=== PATIENT | female | born 1975 | race Caucasian/White ===

== ENCOUNTER 2018-11-05 05:27 | Inpatient (IN) | payer BC, OTHER ==
--- NOTE | 2018-11-03 21:18 | PREOPHP ---
DATE OF ADMISSION: 11/05/2018 HISTORY OF PRESENT ILLNESS: This is a 43-year-old female, 2, para 2 with 2 spontaneous vagin al deliveries. The patient was referred to me in August of this year due to a history of fibroids that are growing with pelvic pain, intractable menometrorrhagia that leads her to severe anemia where the patient had been visiting the ER. The patient was advised by Dr. Sanchez for a hysterectomy later on. He retired and she is seeking for help. The patient is on vitamin with a history of a D and C a nd asthma, seasonal allergies on Albuterol. FAMILY HISTORY: Healthy. REVIEW OF SYSTEMS: Negative for cardiovascular disease, lung disease, neurological or urological, GI , endocrine, neurological, hematological disease. ALLERGIES: SHE IS NOT ALLERGIC TO ANY MEDICATION. SOCIAL HISTORY: She does not have a history of drug abuse. She only drinks socially. No history of smoking. PHYSICAL EXAMINATION: VITAL SIGNS: The patient's vital signs are stable with a blood pressure of 125/90. She weighs 217 p ounds. She is 5 foot 7 inches. The patient has an IUD to try to control the bleeding that is only p artially controlling. HEAD AND NECK: Normal. BREASTS: Soft, nontender, no masses. CHEST: Clear. HEART: Normal sinus rhythm. LUNGS: Clear. ABDOMEN: With suprapubic mass about 14-week size of a . GENITALIA: With normal external genitalia. Uterus is large with multiple fibroids. Adnexa are nonp alpable. RECTAL: Negative. EXTREMITIES: Negative. DIAGNOSES: 1. Giant multiple fibroid uterus. 2. Anemia. PLAN: She is undergoing a total abdominal hysterectomy and bilateral salpingectomy. She has been ad vised of the possible risks and possible complications of the surgery with her alternatives and optio ns. Written information was provided. She had no more questions and agreed to go ahead with the pro cedure with full understanding. The patient got better from the anemia with the IUD and she is under going the procedure, hysterectomy, bilateral salpingectomy preserving her ovaries due to her age. Th e patient has been advised that in case of a malignancy in the ovaries, she would have something done on that. Otherwise, the ovaries will stay. Otherwise, her laboratory testing show hypercholesterol emia and the multiple fibroids. The patient has scheduled for the procedure, I already mentioned. Dictated By: BERTO SANCHES/STEVE Conf#: [id number] DID#: [id number]
[~2018-11-05] VITALS: Ht 165.1 cm; Wt 95.7 kg
[2018-11-05] VITALS (26 sets, daily range): BP systolic 92–122; BP diastolic 52–83; PULSE 70–91; RESP 15–26; Ht 165.1 cm; Wt 95.7 kg
[~2018-11-05 05:27] MED LIST: ALBU18HF INHALATION; ALBU8.5H8 INH; BECL10.62 IH; FLUT1AER7 IH
[2018-11-05] MEDS ORDERED: CEFAZOLIN 2 GM/50 ML (PMX) 50 ML IVPB ONE (06:00)
--- NOTE | 2018-11-05 07:22 | PREAC ---
Date/Time of Note Date/Time of Note DATE: 11/05/18 TIME: 07: Anesthesia Eval and Record Evaluation Time Pre-Procedure Interview DATE: 11/05/18 TIME: 07:19 Age 43 Sex female NPO: 8 hrs Preoperative diagnosis fibroid uterine Planned procedure total abdominal hysterectomy BSO Past Medical History Past Medical History: Includes Pulm: Asthma GI: Obesity Surgery & Anesthesia Issues No known issue Meds Anticoagulation: No Beta Anastasiya within 24 hr: No Reason Beta Anastasiya not given: Pt. not on B-Anastasiya Reported Medications Fluticasone/Salmeterol (Airduo Respiclick 113-14 Mcg) 1 Each Aer.pow.ba, 1 EACH IH BID 11/05/18 Beclomethasone Dipropionate (Qvar Redihaler (80 MCG)) 10.6 Gm Hfa.aeroba, 2 PUFFS IH BID, INH 11/05/18 Albuterol Sulfate* (Ventolin HFA*) 18 Gm Hfa.aer.ad, 2 PUFF INHALATION Q4H, #1 INHALER 11/05/18 Discontinued Reported Medications Albuterol Sulfate* (Proair HFA*) 8.5 Gm Hfa.aer.ad, 2 PUFF INH Q4 PRN for WHEEZING AND SOB, INH 02/24/14 Meds reviewed: Yes Allergies Coded Allergies: No Known Allergy (Unverified , 11/05/18) Allergies Reviewed: Yes Labs/Studies Labs Reviewed: Reviewed by anesthesiologist Blood Bank Test 11/05/18 05:52 Blood Product Summary Counts test: Negative Studies: ECG (n/a), CXR (n/a) Pre-procedure Exam Last vitals Vital Signs Date Temp Pulse Resp B/P (MAP) Pulse Ox O2 O2 Flow FiO2 Time Delivery Rate 11/05/18 97.6 85 16 122/70 99 Room Air 06:29 (87) Airway: Adequate mouth opening Mallampati: Mallampati I Teeth: Normal Lung: Normal Heart: Normal ASA Physical Status ASA physical status: 2 Emergency: None Planned Anesthetic General/MAC: ETT, LMA Neuraxial: Spinal Planned Pain Management Sub-arachniod narcotics, Parenteral pain med Pre-operative Attestations Prior to commencing anesthesia and surgery, the patient was re-evaluated, there was verification of: *The patient's identity *The results of appropriate recent lab work and preoperative vital signs *The above evaluation not changing prior to induction *Anesthetic plan, risk benefits, alternative and complications discussed with patient/family; questions answered; patient/family understands, accepts and wishes to proceed. ACOSTA SONG MD Nov 05, 2018 07:22
[2018-11-05] MEDS ORDERED: HYDROmorphONE 1 MG/5 ML IV SYRINGE IV PRN ×3 (07:30)
[2018-11-05] MEDS ORDERED: KETOROLAC 30 MG INJ IV PRN (07:30)
[2018-11-05] MEDS ORDERED: DIPHENHYDRAMINE 50 MG INJ IV PRN (07:30)
[2018-11-05] MEDS ORDERED: MEPERIDINE 25 MG INJ IV PRN (07:30)
[2018-11-05] MEDS ORDERED: ALBUTEROL 0.083% (NEB) 2.5 MG/3 ML AMP HHN PRN (07:30)
[2018-11-05] MEDS ORDERED: FENTAnyl 50 MCG/ML VIAL IV PRN ×3 (07:30)
[2018-11-05] MEDS ORDERED: MIDAZOLAM 1 MG/ML 2 ML INJ ONE (07:37)
[2018-11-05] MEDS ORDERED: PROPOFOL 20 ML ONE (07:37)
[2018-11-05] MEDS ORDERED: CEFAZOLIN 1 GM INJ ONE (07:37)
[2018-11-05] MEDS ORDERED: KETOROLAC 30 MG INJ ONE (07:38)
[2018-11-05] MEDS ORDERED: ONDANSETRON 4 MG INJ ONE (07:38)
[2018-11-05] MEDS ORDERED: morphine SULFATE/PF (10 MG/10 ML) INJ ONE (07:38)
[2018-11-05] MEDS ORDERED: METOCLOPRAMIDE 10 MG INJ ONE ×2 (07:38→10:19)
--- NOTE | 2018-11-05 07:55 | HPN ---
Date/Time of Note Date/Time of Note DATE: 11/05/18 TIME: 07:55 Interval H&P Admission Note Pt. seen H&P reviewed: No system changes BERTO SKY MD Nov 05, 2018 07:55
[2018-11-05] MEDS ORDERED: EPHEDrine 25 MG/5 ML SYG ONE (08:02)
[2018-11-05] MEDS ORDERED: ROCURONIUM 50 MG INJ ONE (08:19)
[2018-11-05] MEDS ORDERED: ONDANSETRON INJ 6 MG in DEXTROSE 5% 50 ML IVPB PRN (10:30)
[2018-11-05] MEDS ORDERED: HYDROCODONE/APAP (5/325) TAB PO PRN ×2 (10:30)
[2018-11-05] MEDS ORDERED: ZOLPIDEM 5 MG TAB PO PRN (10:30)
[2018-11-05] MEDS ORDERED: ALBUTEROL 18 GM INHALER INH SCH (10:30)
[2018-11-05] MEDS ORDERED: DIPHENHYDRAMINE 50 MG CAP PO PRN (10:30)
[2018-11-05] MEDS ORDERED: METOCLOPRAMIDE 10 MG INJ IV PRN (10:30)
--- NOTE | 2018-11-05 10:45 | SIPON ---
Date/Time of Note Date/Time of Note DATE: 11/05/18 TIME: 10:37 Operative Report Preoperative Diagnosis Intractable pelvic pain intractable menometrorrhagia and multiple giant fibroids. Anemia Postoperative Diagnosis Same Operation/Procedure Performed Multiple myomectomy along with abdominal hysterectomy and bilateral salpingectomy Surgeon see signature line surgery assistant DR TITUS Anesthesia: general Estimated blood loss: 100 - 150 ml's Transfusion Required none Specimen Uterus and fibroids with cervix and tubes Grafts/Implants none Complications none BERTO SKY MD Nov 05, 2018 10:45
[2018-11-05] MEDS: KETOROLAC 30 MG INJ IV SCH ×3 (11:56→23:39)
[2018-11-05] MEDS: METOCLOPRAMIDE 10 MG TAB PO SCH ×3 (11:56→23:39)
[2018-11-05] MEDS: LACTATED RINGER'S 1,000 ML IV SCH ×2 (11:58→16:17)
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
[2018-11-05] MEDS: ALBUTEROL HFA 8 GM INHALER INH SCH ×3 (14:30→21:00)
[2018-11-05] MEDS: CEFAZOLIN 1 GM/50 ML (PMX) 50 ML IVPB SCH ×2 (16:17→23:39)
--- NOTE | 2018-11-05 20:05 | PAC ---
Date/Time of Note Date/Time of Note DATE: 11/05/18 TIME: 20:05 Post-Anesthesia Notes Post-Anesthesia Note Last documented vital signs Vital Signs Date Temp Pulse Resp B/P (MAP) Pulse Ox O2 O2 Flow FiO2 Time Delivery Rate 11/05/18 97.0 80 18 102/58 100 15:00 (73) 11/05/18 Nasal 2.0 11:23 Cannula Activity: WNL Respiratory function: WNL Cardiovascular function: WNL Mental status: Baseline Pain reasonably controlled: Yes Hydration appropriate: Yes Nausea/Vomiting absent: No ACOSTA SONG MD Nov 05, 2018 20:05
[2018-11-05] MEDS ORDERED: MOMETASONE 0.24 GM INHALER INH SCH (21:00)
[2018-11-05] MEDS: MOMETASONE 0.24 GM INHALER INH SCH (21:47)
[2018-11-06] MEDS: ALBUTEROL HFA 8 GM INHALER INH SCH ×3 (01:00→08:53)
[2018-11-06] MEDS: LACTATED RINGER'S 1,000 ML IV SCH (01:22)
[2018-11-06 02:49] VITALS: BP 107/59; PULSE 87; RESP 18
[2018-11-06] MEDS: KETOROLAC 30 MG INJ IV SCH ×4 (05:57→21:59)
[2018-11-06] MEDS: METOCLOPRAMIDE 10 MG TAB PO SCH ×3 (05:57→18:17)
[2018-11-06 07:13] VITALS: BP 98/58; PULSE 89; RESP 14
--- NOTE | 2018-11-06 07:45 | OPPN ---
Date/Time of Note Date/Time of Note DATE: 11/06/18 TIME: 07:43 Anesthesia Follow up Anesthesia Follow up Last documented vital signs Vital Signs Date Temp Pulse Resp B/P (MAP) Pulse Ox O2 O2 Flow FiO2 Time Delivery Rate 11/06/18 98.8 89 14 98/58 (71) 96 Room Air 07:13 11/05/18 2.0 11:23 Respiratory function: WNL Cardiovascular function: WNL Comments A 43 year female s/p hysterectomy under GA and spinal duramorph for post op pain .POD#1 is doing fine. No pain, itching, N/V, headache, neural deficit. SOB. ACOSTA SONG MD Nov 06, 2018 07:45
[2018-11-06] MEDS: FLUTICASONE/VILANTEROL 100-25 INH SCH (08:50)
[2018-11-06] MEDS: CEFAZOLIN 1 GM/50 ML (PMX) 50 ML IVPB SCH (08:50)
[2018-11-06] MEDS: MOMETASONE 0.24 GM INHALER INH SCH ×2 (08:50→20:52)
--- NOTE | 2018-11-06 11:07 | PN ---
Date/Time of Note Date/Time of Note DATE: 11/06/18 TIME: 11:05 Assessment/Plan Lines/Catheters IV Catheter Type (from Nrs): Peripheral IV Ramos in Place (from Nrs): Yes Subjective 24 Hr Interval Summary Afebrile, not up yet Day 1 post exploratory. Incision healing good. Urine is dark we will send for UA and culture. Low H&H we will start IV iron. Encouraged ambulation. Patient advised about surgical findings and procedure done. She appreciates that Constitutional: improved Feeding: advancing diet Pain Control: mild Detailed Summary Eyes: no complaints ENT: no complaints Respiratory: no complaints Cardiovascular: no complaints Gastrointestinal: no complaints Genitourinary: no complaints Musculoskeletal: no complaints Skin: no complaints Neurologic: no complaints Endocrine: no complaints Lymphatic: no complaints Psychological: no complaints, nl mood/affect Immunologic: no complaints Exam/Review of Systems Vital Signs Vitals Vital Signs Date Temp Pulse Resp B/P (MAP) Pulse Ox O2 O2 Flow FiO2 Time Delivery Rate 11/06/18 98.8 89 14 98/58 (71) 96 Room Air 07:13 11/05/18 2.0 11:23 Intake and Output 11/05/18 11/05/18 11/06/18 1515:00 23:00 07:00 IntakeIntake Total 1700 ml 1415 ml 1485 ml OutputOutput Total 300 ml BalanceBalance 1400 ml 1415 ml 1485 ml Exam Constitutional: alert, oriented, well developed Psych: no complaints, nl mood/affect Head: normocephalic, atraumatic Eyes: nl conjunctiva, EOMI, nl lids, nl sclera ENMT: nl external ears & nose, nl lips & teeth, nl nasal mucosa & septum, mucosa pink and moist Neck: supple, non-tender Respiratory: clear to auscultation, normal air movement Cardiovascular: regular rate and rhythm, nl pulses Gastrointestinal: soft, nl liver, spleen, non-tender Musculoskeletal: nl extremities to inspection, nl gait and stance Extremities: normal pulses Neurological: CALL CENTER TRAINER II-XII intact, nl mental status, nl speech, nl strength Skin: nl turgor, rash or lesions Lymph: nl lymph nodes Results Result Diagram: 11/06/18 0515 11/06/18 0515 BERTO SKY MD Nov 06, 2018 11:07
[2018-11-06] MEDS ORDERED: BISACODYL (EC) 5 MG TAB PO ONE (11:30)
[2018-11-06] MEDS ORDERED: ALBUTEROL HFA 8 GM INHALER INH PRN (12:00)
[2018-11-06] MEDS: SOD FERRIC GLUC COMPLX 125 MG in SOD CHLORIDE 0.9% 100 ML IVPB SCH (13:49)
[2018-11-06 14:59] VITALS: BP 117/68; PULSE 90; RESP 14
[2018-11-06 19:05] VITALS: BP 144/70; PULSE 97; RESP 18
[2018-11-07] MEDS: METOCLOPRAMIDE 10 MG TAB PO SCH ×5 (01:00→23:34)
[2018-11-07 02:00] VITALS: BP 114/63; PULSE 95; RESP 18
[2018-11-07] MEDS: KETOROLAC 30 MG INJ IV SCH ×4 (06:11→23:34)
[2018-11-07] MEDS: FLUTICASONE/VILANTEROL 100-25 INH SCH (08:20)
[2018-11-07] MEDS: MOMETASONE 0.24 GM INHALER INH SCH ×2 (08:20→23:35)
[2018-11-07 09:46] VITALS: BP 119/68; PULSE 105; RESP 18
--- NOTE | 2018-11-07 10:24 | PN ---
Date/Time of Note Date/Time of Note DATE: 11/07/18 TIME: 10:21 Assessment/Plan Lines/Catheters IV Catheter Type (from Nrsg): Saline Lock Ramos in Place (from Nrsg): No Subjective 24 Hr Interval Summary Day 2 postop Afebrile. Feeling good. Not in a lot of pain. Pain is controlled with p.o. meds. Very anemic for which iron IV is being given Ambulatory. Had bowel movements Patient advised to walk around more. Incision healing good. Possible home tomorrow Constitutional: no complaints Feeding: advancing diet Pain Control: mild Detailed Summary Eyes: no complaints ENT: no complaints Respiratory: no complaints Cardiovascular: no complaints Gastrointestinal: no complaints Genitourinary: no complaints Musculoskeletal: no complaints Skin: no complaints Neurologic: no complaints Endocrine: no complaints Lymphatic: no complaints Psychological: no complaints, nl mood/affect Immunologic: no complaints Exam/Review of Systems Vital Signs Vitals Vital Signs Date Temp Pulse Resp B/P (MAP) Pulse Ox O2 O2 Flow FiO2 Time Delivery Rate 11/07/18 97.5 105 18 119/68 99 Room Air 09:46 (85) 11/05/18 2.0 11:23 Intake and Output 11/06/18 11/06/18 11/07/18 1515:00 23:00 07:00 IntakeIntake Total 450 ml 940 ml BalanceBalance 450 ml 940 ml Exam Constitutional: alert, oriented, well developed Psych: no complaints, nl mood/affect Head: normocephalic, atraumatic Eyes: nl conjunctiva, EOMI, nl lids, nl sclera ENMT: nl external ears & nose, nl lips & teeth, nl nasal mucosa & septum, m ucosa pink and moist Neck: supple, non-tender Respiratory: clear to auscultation, normal air movement Cardiovascular: regular rate and rhythm, nl pulses Gastrointestinal: soft, nl liver, spleen, non-tender Musculoskeletal: nl extremities to inspection, nl gait and stance Extremities: normal pulses Neurological: SUPERVISOR RECLAMATION II-XII intact, nl mental status, nl speech, nl strength Skin: nl turgor, rash or lesions Lymph: nl lymph nodes Results Result Diagram: 11/06/18 0515 11/06/18 0515 BERTO SKY MD Nov 07, 2018 10:24
[2018-11-07] MEDS: SOD FERRIC GLUC COMPLX 125 MG in SOD CHLORIDE 0.9% 100 ML IVPB SCH (12:41)
[2018-11-07 19:10] VITALS: BP 139/75; PULSE 81; RESP 18
[2018-11-08 01:57] VITALS: BP 126/83; PULSE 74; RESP 17
[2018-11-08] MEDS: KETOROLAC 30 MG INJ IV SCH (05:33)
[2018-11-08] MEDS: METOCLOPRAMIDE 10 MG TAB PO SCH ×2 (05:34→12:17)
[2018-11-08 06:25] VITALS: BP 133/67; PULSE 66; RESP 16
[2018-11-08] MEDS ORDERED: ALPRAZOLAM 0.25 MG TAB PO ONE (07:00)
[2018-11-08 07:18] VITALS: BP 144/82; PULSE 62; RESP 17
[2018-11-08] MEDS: MOMETASONE 0.24 GM INHALER INH SCH (08:07)
[2018-11-08] MEDS: FLUTICASONE/VILANTEROL 100-25 INH SCH (08:07)
--- NOTE | 2018-11-08 11:57 | PD.PPDC ---
SOFTWARE CONTROLS ENGINEER Discharge Instruction Condition [id number] Patient Condition: Siyoh9n Good Diet [id number] Diet: Mhqjg2c Resume Regular Diet Activity/Restrictions [id number] Activity: Sfdmo3t Normal Activity May Shower Votck7Oe Restrictions: [id number] No Exercising No Lifting No Driving No Sexual Activity Nothing in the Vagina No [place] No Tampons, douche Wound/Drain Care Instructions [id number] Wound/Drain Care Uarnf3g Remove Steri Strips in 1 week Instructions: Wash with soap and water Keep clean and dry Follow-up Follow-up with Physician: 1, Week/Weeks Return to clinic for [id number] MATERIALS HANDLER Instructions: Pkpwl7b Fever greater than 101 Chills Worsening abdominal pain Excessive Vaginal Bleeding More than 2 pads per hour Unable to tolerate diet [id number] Surgical Instructions: Tpknz4n Incisional Drainage Incisional Redness BERTO SKY MD Nov 08, 2018 11:57
--- NOTE | 2018-11-08 12:25 | DS ---
Date/Time of Note Date/Time of Note DATE: 11/08/18 TIME: 12:19 Discharge Summary Admission/Discharge Info Admit Date/Time Nov 05, 2018 at 05:27 Discharge Date/Time November 08, 2018 Discharge Diagnosis Giant multiple fibroid uterus. Chronic intractable pelvic pain and bleeding. Anemia Patient Condition: Good Procedures Multiple myomectomy along with a total abdominal hysterectomy and bilateral salpingectomy Hx of Present Illness 43 years old female with a long-standing history of multiple fibroids intractable mental menometrorrhagia and bleeding and anemia. Fibroids were growing and given her excruciating pelvic back pain intractable with any medication. A hysterectomy was proposed Hospital Course . the patient underwent the procedure without complications and she was up and about the next day after and and ambulatory tolerating diet, pain was controlled with p.o. medications. She was voiding well. Due to her anemia she was given IV iron infusion. She was tolerating diet with bowel movement with a clean incision. She had no pain with p.o. medications. Her laboratory testing were good except for anemia. She was afebrile stable to go home This morning she had an episode of anxiety that was relieved by Xanax which will be provided to take home. The patient was also given [place] and ibuprofen. Instructions were given to how to take care of herself the incision and went to see me. She is advised what to do and not to do at home and all the information was given also written. She will see me in 1 week. Her physical examination was noncontributory at this time and the episode of anxiety subsided. Home Meds Reported Medications Fluticasone/Salmeterol (Airduo Respiclick 113-14 Mcg) 1 Each Aer.pow.ba, 1 EACH IH BID 11/05/18 Beclomethasone Dipropionate (Qvar Redihaler (80 MCG)) 10.6 Gm Hfa.aeroba, 2 PUFFS IH BID, INH 11/05/18 Albuterol Sulfate* (Ventolin HFA*) 18 Gm Hfa.aer.ad, 2 PUFF INHALATION Q4H, #1 INHALER 11/05/18 Discontinued Reported Medications Albuterol Sulfate* (Proair HFA*) 8.5 Gm Hfa.aer.ad, 2 PUFF INH Q4 PRN for WHEEZING AND SOB, INH 02/24/14 Primary Care Provider Care Physician No Primary Time spent on discharge: < 30 minutes Pending Labs Laboratory Tests Test 11/08/18 04:53 White Blood Count 10.2 10^3/ul (4.8-10.8) Red Blood Count 3.18 10^6/ul (4.20-5.40) Hemoglobin 8.9 g/dl (12.0-16.0) Hematocrit 29.6 % (37.0-47.0) Mean Corpuscular Volume 93.1 fl (82.0-101.0) Mean Corpuscular Hemoglobin 28.0 pg (29.0-33.0) Mean Corpuscular Hemoglobin Concent 30.1 g/dl (32.0-37.0) Red Cell Distribution Width 13.7 % (11.5-14.5) Platelet Count 412 10^3/UL (140-415) Mean Platelet Volume 10.1 fl (7.4-10.4) Immature Granulocytes % 0.600 % (0.001-0.429) Neutrophils % 73.1 % (39.0-77.0) Lymphocytes % 14.1 % (15.0-51.0) Monocytes % 9.3 % (0.0-11.0) Eosinophils % 2.3 % (0.0-7.0) Basophils % 0.6 % (0.0-2.0) Nucleated Red Blood Cells % 0.0 /100WBC (0.0-0.0) Immature Granulocytes # 0.060 10^3/ul (0.0-0.031) Neutrophils # 7.5 10^3/ul (1.6-7.5) Lymphocytes # 1.4 10^3/ul (0.8-2.9) Monocytes # 1.0 10^3/ul (0.3-0.9) Eosinophils # 0.2 10^3/ul (0.0-0.5) Basophils # 0.1 10^3/ul (0.0-0.1) Nucleated Red Blood Cells # 0.0 10^3/ul (0.0-0.0) BERTO SKY MD Nov 08, 2018 12:25
--- NOTE | 2018-11-08 16:02 | RADRPT ---
Vent Rate: 60 bpm RR Interval: 1008 msec SD Interval: 144 msec QRS Duration: 83 msec QT Interval: 386 msec QTC Interval: 384 msec P-R-T [place]: 55 - 39 - 31 degrees Sinus rhythm...normal P axis, V-rate 50- 99 Low voltage, precordial leads...precordial leads <1.0mV Electronically Signed By: Forest Jason
== END 2018-11-08 13:13 | disposition home or self-care (01) | DRG 743 ==
LOC: REC 05:27 → MS1 11:14
PROVIDERS: ADMIT Obstetrics & Gynecology; ATTEND Obstetrics & Gynecology
PROC: 0UB90ZZ Excision of Uterus, Open Approach (ICD-10-PCS; 2018-11-05)
PROC: 0UT70ZZ Resection of Bilateral Fallopian Tubes, Open Approach (ICD-10-PCS; 2018-11-05)
PROC: 0U5 Female Reproductive System, Destruction (ICD-10-PCS; 2018-11-05)
PROC: 0UT90ZZ Resection of Uterus, Open Approach (ICD-10-PCS; principal; 2018-11-05 07:30)
DX: D25.9 Leiomyoma of uterus, unspecified (principal); N92.1 Excessive and frequent menstruation with irregular cycle; D50.0 Iron deficiency anemia secondary to blood loss (chronic); N94.89 Other specified conditions associated with female genital organs and menstrual cycle; F41.9 Anxiety disorder, unspecified
CPT/HCPCS: 71045; 80051; 81003; 82565; 84520; 85025; 86850; 86900; 86901; 86920; 87086; 88302; 88305; 93005; J0690; J1170; J1885; J2250; J2274; J2405; J2765; J2916; J7120